=== PATIENT | male | born 1950 | race Caucasian/White ===

== ENCOUNTER 2019-01-05 11:30 | Emergency (ER) | payer OTHER, MEDICAID ==
[~2019-01-05] VITALS: Ht 157.5 cm; Wt 84.5 kg
[~2019-01-05 11:30] MED LIST: AMLO25PO PO; CLOP75TA19 PO; FAMO-142 PO; FOLI-49 PO; NEPH PO; TACR1CAP26 PO
[2019-01-05 11:35] VITALS: Ht 157.5 cm; Wt 84.5 kg
[2019-01-05] MEDS ORDERED: CEPH-443 PO (12:06)
[2019-01-05] MEDS ORDERED: IBUP-1542 PO (12:06)
[2019-01-05] MEDS ORDERED: SULF1TAB31 PO (12:06)
[2019-01-05 12:36] VITALS: BP 155/71; PULSE 76; RESP 20
--- NOTE | 2019-01-05 13:25 | ERD ---
ER Documentation Chief Complaint Chief Complaint left lower arm red, swollen and painful x4 days HPI Patient is a 68-year-old male with hypertension who presents with left arm swelling and pain. He said that it started 4 days ago and is gotten worse. He said that yesterday he had subjective fever but did not take his temperature. He is right-handed. The patient denies IV drug use. He said that he tried 20 mg of prednisone for inflammation. Upon review of old medical records this is the patient's seventh visit to the ER since 2010. He said that his primary doct or is at [facility] but has not seen a doctor for this as of yet. ROS All systems reviewed and are negative except as per history of present illness. Medications Home Meds Active Scripts Cephalexin* (Keflex*) 500 Mg Capsule, 500 MG PO QID for 7 Days, CAP Prov:AVELINO GANDARA MD 01/05/19 Sulfamethoxazole/Trimethoprim* (Bactrim Ds* Tablet) 1 Each Tablet, 1 TAB PO BID, #14 TAB Prov:AVELINO GANDARA MD 01/05/19 Ibuprofen* (Motrin*) 600 Mg Tab, 600 MG PO Q6H PRN for PAIN AND OR ELEVATED TEMP, #30 TAB Prov:AVELINO GANDARA MD 01/05/19 Reported Medications Amlodipine Besylate (Amlodipine Besylate) 25 Gm Powder, 10 MG PO DAILY 07/25/13 Folic Acid* (Folic Acid*) 1 Mg Tablet, 1 MG PO BID 07/25/13 Tacrolimus* (Prograf*) 1 Mg Capsule, 2 MG PO BID 07/25/13 Multivit/Ca Carb/B Cmplx/Fa* (Mona-Brittani*) 1 Tab Tab, 1 TAB PO DAILY 01/23/13 Famotidine* (Acid Controller*) 20 Mg Tablet, PO BID 10/03/11 Clopidogrel Bisulfate (Plavix) 75 Mg Tablet, PO DAILY 10/03/11 Allergies Allergies: Coded Allergies: No Known Drug Allergies (Verified Allergy, Mild, 07/25/13) Uncoded Allergies: NONE (Allergy, 10/03/11) PMhx/Soc History of Surgery: Yes (AV FISTULA, KIDNEY TRANSPLANTS X 2,APPY ) Anesthesia Reaction: No Hx Neurological Disorder: Yes (CVA ) Hx Respiratory Disorders: No Hx Cardiac Disorders: Yes (HTN) Hx Psychiatric Problems: No Hx Miscellaneous Medical Probl: Yes (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 Neck: Full range of motion. No meningismus. Resp: Clear to auscultation bilaterally Cardio: Regular rate and rhythm, no murmurs Abd: Soft, non tender, non distended. Normal bowel sounds Skin: Cellulitic changes to the left forearm without signs of abscess or crepitus, no involvement of the fingers Back: No midline or flank tenderness Ext: No cyanosis, or edema Neur: Awake and alert Psych: Normal Mood and Affect Procedures/MDM Patient is a 68-year-old male who presents with left forearm cellulitis. There is no sign of necrotizing fasciitis or abscess at this time. I doubt flexor tenosynovitis as there is no finger involvement. The patient will be given Bactrim and Keflex as well as ibuprofen. The patient will need to follow-up closely with a primary doctor within 24 to 48 hours for reevaluation. He says that he has an appointment scheduled with his primary doctor on Saturday which is 2 days from now. The patient can return for any worsening symptoms. I believe a trial of outpatient antibiotics is appropriate at this time as I doubt sepsis or other systemic infection. Departure Diagnosis: Primary Impression: Cellulitis Site of cellulitis: extremity Site of cellulitis of extremity: upper extremity Laterality: left Qualified Codes: L03.114 - Cellulitis of left upper limb Additional Impression: Swelling Condition: Fair Patient Instructions: Cellulitis, Peripheral Edema, Unilateral Referrals: Your doctor at [facility] Additional Instructions: Llame al doctor MAANA y shahzad andrzej NIRALI PARA DENTRO DE 1-2 [address].Dgale a la secretaria que nosotros le instruimos hacer esta nirali.Avise o llame si claros condicin se empeora antes de la nirali. Regresa aqui si peor o no mejor. AVELINO GANDARA MD Jan 05, 2019 13:25
== END 2019-01-05 12:37 | disposition home or self-care (01) ==
LOC: E/R 11:30
DX: L03.114 Cellulitis of left upper limb (principal); I10 Essential (primary) hypertension; Z86.73 Personal history of transient ischemic attack (TIA), and cerebral infarction without residual deficits; Z85.828 Personal history of other malignant neoplasm of skin; Z79.02 Long term (current) use of antithrombotics/antiplatelets
CPT/HCPCS: 99283